=== PATIENT | female | born 1990 | race Two or more races ===

== ENCOUNTER 2017-09-23 10:01 | Outpatient (CLI) | payer OTHER | END 2017-09-23 10:11 | disposition home or self-care (01) | LOC: SONOGRAMA 10:01 | DX: E04.1 Nontoxic single thyroid nodule (principal) ==

== ENCOUNTER 2019-07-20 10:32 | Outpatient (CLI) | payer OTHER | END 2019-07-20 13:57 | disposition home or self-care (01) | LOC: SONOGRAMA 10:32 | DX: E03.8 Other specified hypothyroidism (principal) ==